=== PATIENT | male | born 1980 | race Caucasian/White ===

== ENCOUNTER 2017-01-29 10:16 | Emergency (ER) | payer OTHER, BC ==
[2017-01-29 10:37] VITALS: BP 159/95; PULSE 86; RESP 16; TEMP 98; O2SAT 99
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
== END 2017-01-29 12:05 | disposition home or self-care (01) ==
LOC: H.ER 10:16
DX: S61.432A Puncture wound without foreign body of left hand, initial encounter (principal); W54.0XXA Bitten by dog, initial encounter; Y99.0 Civilian activity done for income or pay